=== PATIENT | male | born 1995 ===

== ENCOUNTER 2021-07-27 10:07 | Emergency (ER) | payer SELFPAY ==
[2021-07-27] MEDS ORDERED: FLUORESCEIN 1 MG STRIP OP ONE (11:50)
--- NOTE | 2021-07-27 11:56 | Emergency Department Report ---
ED Eye Problem HPI - General Chief complaint: Eye Problems Stated complaint: LEFT EYE IRRITATION Source: patient Mode of arrival: Ambulatory Limitations: Language Barrier - History of Present Illness Initial comments: 26-year-old male presents to the ER with left eye irritation with foreign body sensation, started on Monday afternoon. Patient reports he was helping his friend clean a boat and when he felt something go into his left eye. Patient denies decrease in vision, no blurry vision reported. No other acute symptoms noted at this time. MD chief complaint: eye pain, eye redness -: Sudden Location: left eye Place: street/outdoors Severity scale (0 -10): 4 Associated Symptoms: denies: headache Treatments Prior to Arrival: none - Related Data Previous Rx's Medication Instructions Recorded Last Taken Type Erythromycin [Erythromycin Ophth 1 applic OS Q6HR 7 Days #1 tube 07/27/21 Unknown Rx Oint] Allergies Allergy/AdvReac Type Severity Reaction Status Date / Time No Known Allergies Allergy Unverified 07/27/21 11:48 ED Review of Systems ROS: Stated complaint: LEFT EYE IRRITATION Other details as noted in HPI Constitutional: denies: chills, fever Eyes: eye pain (left eye). denies: eye discharge, vision change ENT: denies: ear pain, throat pain Respiratory: denies: cough, shortness of breath, wheezing Cardiovascular: denies: chest pain, palpitations Endocrine: no symptoms reported Gastrointestinal: denies: abdominal pain, nausea, diarrhea Genitourinary: denies: urgency, dysuria Musculoskeletal: denies: back pain, joint swelling, arthralgia Skin: denies: rash, lesions Neurological: denies: headache, weakness, paresthesias Psychiatric: denies: anxiety, depression Hematological/Lymphatic: denies: easy bleeding, easy bruising ED Past Medical Hx - Past Medical History Previous Medical History?: No - Surgical History Past Surgical History?: No - Medications Home Medications: Home Medications Medication Instructions Recorded Confirmed Last Taken Type Erythromycin [Erythromycin Ophth 1 applic OS Q6HR 7 Days #1 tube 07/27/21 Unknown Rx Oint] ED Physical Exam - General Limitations: Language Barrier General appearance: alert, in no apparent distress - Head Head exam: Present: atraumatic, normocephalic - Eye Eye exam: Present: normal appearance, PERRL, conjunctival injection, other (No swelling , No FB noted in bilateral eyes. + flurosince uptake to left eye + corneal abrasion noted. ) Pupils: Present: normal accommodation - Expanded Eye Exam Expanded Visual acuity (R) = 20/: 80 Visual acuity (L) = 20/: 50 With correction: No (both 20/50) - ENT ENT exam: Present: mucous membranes moist - Neck Neck exam: Present: normal inspection - Respiratory Respiratory exam: Present: normal lung sounds bilaterally. Absent: respiratory distress - Cardiovascular Cardiovascular Exam: Present: regular rate, normal rhythm. Absent: systolic murmur, diastolic murmur, rubs, gallop - GI/Abdominal GI/Abdominal exam: Present: soft, normal bowel sounds - Rectal Rectal exam: Present: deferred - Extremities Exam Extremities exam: Present: normal inspection - Back Exam Back exam: Present: normal inspection - Neurological Exam Neurological exam: Present: alert, oriented X3 - Psychiatric Psychiatric exam: Present: normal affect, normal mood - Skin Skin exam: Present: warm, dry, intact, normal color. Absent: rash ED Course Vital Signs 07/27/21 07/27/21 10:33 13:20 Temperature 98.4 F 97.1 F L Pulse Rate 68 84 Respiratory 14 18 Rate Blood Pressure 129/83 Blood Pressure 136/86 [Right] O2 Sat by Pulse 94 98 Oximetry ED Medical Decision Making - Medical Decision Making Left eye with no foreign body present. Right eye not affected and no acute findings noted. Fluorescein uptake noted to left eye positive for corneal abrasion. No other acute findings noted on eye exam. Patient is stable for discharge home with topical eye antibiotics. No further work-up is needed at this time. Critical care attestation.: If time is entered above; I have spent that time in minutes in the direct care of this critically ill patient, excluding procedure time. ED Disposition Clinical Impression: Corneal abrasion Qualifiers: Encounter type: initial encounter Laterality: left Qualified Code(s): S05.02XA - Injury of conjunctiva and corneal abrasion without foreign body, left eye, initial encounter Disposition: HOME / SELF CARE / HOMELESS Is pt being admited?: No Condition: Stable Instructions: Corneal Abrasion, Corneal Abrasion, [id number] Prescriptions: Erythromycin [Erythromycin Ophth Oint] 1 applic OS Q6HR 7 Days #1 tube Referrals: RICHARD ROBERT MD [Primary Care Provider] - 3-5 Days Time of Disposition: 13:01 Print Language: MALIAN
[2021-07-27] MEDS ORDERED: TETANUS,DIPHTHERIA TOXOID ADULT 0.5 ML INJ IM NR (12:00)
[2021-07-27] MEDS ORDERED: TETRACAINE 0.5% OPHTH SOLN 4ML OU ONE (12:17)
[2021-07-27 13:24] VITALS: BP 136/86
== END 2021-07-27 13:20 | disposition home or self-care (01) ==
LOC: ED 10:07
DX: S05.02XA Injury of conjunctiva and corneal abrasion without foreign body, left eye, initial encounter (principal); Z79.899 Other long term (current) drug therapy; X58.XXXA Exposure to other specified factors, initial encounter; Y93.89 Activity, other specified; Y92.89 Other specified places as the place of occurrence of the external cause; Y99.8 Other external cause status
CPT/HCPCS: 90714; 99282; 99283